=== PATIENT | female | born 1970 | race American Indian/Alaskan Native ===

== ENCOUNTER 2017-03-10 09:25 | Day surgery (SDC) | payer MEDICAID ==
[2017-03-10 09:39] VITALS: BMI 32.2
[2017-03-10] MEDS ORDERED: Propofol 10 mg/ml Inj (20 ML) ONE (10:09)
[2017-03-10] MEDS ORDERED: Midazolam 2 MG/2 ML VIAL ONE (10:12)
[2017-03-10 10:17] VITALS: O2SAT 100
[2017-03-10] MEDS ORDERED: cefOXitin IV 2 gm in Dextrose 2 GM/50 ML BAG IVPB ONE (11:01)
[2017-03-10] MEDS ORDERED: HYDROmorphone 0.5 mg/0.5 ml ISec IVP PRN (11:20)
--- NOTE | 2017-03-10 11:20 | PCM.SURG1 ---
Surgeon's Initial Post Op Note - Surgeon's Notes Surgeon: dr aguiar Chair Springer: none Type of Anesthesia: General LMA Anesthesia Administered By: dr luna Pre-Operative Diagnosis: 46 yr witj fibroid uerus/menorrhagia Operative Findings: see the op reoprt Post-Operative Diagnosis: same Operation Performed: d &c, hystercopy, myasure Specimen/Specimens Removed: ecc. emc. polyp/r/o fibroid Estimated Blood Loss: EBL {In ML}: 20 Blood Products Given: N/A Drains Used: No Drains Post-Op Condition: Good Date of Surgery/Procedure: 03/10/17 Time of Surgery/Procedure: 11:00
[2017-03-10 13:20] VITALS: BP 130/81; PULSE 66; RESP 16; TEMP 97.2
--- NOTE | 2017-03-11 07:04 | OP ---
PROCEDURE DATE: 03/10/2017 PREOPERATIVE DIAGNOSIS: A 46-year-old, 4, para 3 with menorrhagia, rule out fibroid uterus. POSTOPERATIVE DIAGNOSIS: A 46-year-old, 4, para 3 with menorrhagia, rule out fibroid uterus. SURGEON: Jorje José MD [employer] ARTIST SURGEON: None. ANESTHESIA: General anesthesia. ANESTHESIOLOGIST: ____. OPERATION PERFORMED: Dilation and curettage, hysteroscopy, MyoSure procedure. COMPLICATIONS: None. ESTIMATED BLOOD LOSS: 20 mL. DEFICIT: 324 mL. PROCEDURE: After informed consent was obtained, the patient was brought to the operating room, place d on the table where general anesthesia was given. ____ prepped and draped ____. Uterus found to be 8 weeks' size, no palpable adnexal masses. Then, the anterior tip of the cervix was ____ with tenac ulum. Gentle dilatation of the cervix was done and ____ was introduced, found to ____ anterior lip o f the cervix. On the ____ anterior wall of the uterus ____ was to do MyoSure. MyoSure was used. Sc raping was done. After that, the MyoSure was removed. Then, the sharp curettage from all the presley of the uterus ____ were sent. ECC was sent into the pathology too. After that, hysteroscope was int roduced and found to be no more polyp. Then, the tenaculum was removed. The patient tolerated the p rocedure well. Laps and instruments x 2 ____. Jorje José MD cc: [id number] TT: 03/10/2017 17:55:55 sn
== END 2017-03-10 13:26 | disposition home or self-care (01) ==
LOC: C.SDS 09:25
PROVIDERS: ATTEND Obstetrics & Gynecology
DX: N92.6 Irregular menstruation, unspecified (principal); N92.0 Excessive and frequent menstruation with regular cycle
CPT/HCPCS: 58558; 88305; J0694; J2001; J2250; J2704; J3010